=== PATIENT | male | born 1970 | race Native Hawaiian/Other Pacific Islander ===

== ENCOUNTER 2018-02-05 10:56 | Emergency (ER) | payer OTHER ==
[2018-02-05 11:29] VITALS: BP 122/80; PULSE 82; RESP 20; TEMP 98.3; O2SAT 98
--- NOTE | 2018-02-05 12:06 | C.PDOC ---
History Of Present Illness 47 year old male with a history of angina/ischemia presents to the emergency department requesting a refill for his medications. Patient is currently taking Coreg, Simvastatin, Losartan, and Aspirin. pt last took coreg and losartan 1 month ago. pt has been getting his medications from the [facility], but they have run out and the patient has not established any medical care in [place]. pt denies any cp, sob or any other complaints. Time Seen by Provider: 02/05/18 11:34 Chief Complaint (Nursing): Med Refill History/Exam Limitations: no limitations Past Medical History Reviewed: Historical Data, Nursing Documentation, Vital Signs Vital Signs: Last Vital Signs Temp 98.3 F 02/05/18 11:28 Pulse 82 02/05/18 11:28 Resp 20 02/05/18 11:28 BP 122/80 02/05/18 11:28 Pulse Ox 98 02/05/18 22:28 - Medical History PMH: HTN, Hypercholesterolemia Surgical History: No Surg Hx Family History: States: No Known Family Hx - Social History Hx Alcohol Use: Yes (Ex drinker) Hx Substance Use: No - Immunization History Hx Tetanus Toxoid Vaccination: No Hx Influenza Vaccination: No Hx Pneumococcal Vaccination: No Review Of Systems Cardiovascular: Negative for: Chest Pain, Palpitations, Light Headedness Respiratory: Negative for: Cough, Shortness of Breath Musculoskeletal: Negative for: Leg Pain Neurological: Negative for: Weakness, Numbness Physical Exam - Physical Exam Appears: Non-toxic, No Acute Distress Skin: Normal Color, Warm Head: Atraumatic, Normacephalic Chest: Symmetrical, No Tenderness Cardiovascular: Rhythm Regular, No Murmur Respiratory: No Decreased Breath Sounds, No Rales, No Rhonchi, No Wheezing Gastrointestinal/Abdominal: Bowel Sounds (good), Soft, No Tenderness Extremity: Normal ROM, No Pedal Edema, No Calf Tenderness Neurological/Psych: Oriented x3, Normal Speech, Normal Cognition ED Course And Treatment O2 Sat by Pulse Oximetry: 98 (RA) Pulse Ox Interpretation: Normal Medical Decision Making Medical Decision Making: pt with hx cad, ran out of medication coreg and losartan 1 month ago, asymptomatic, for refill. will give one month refill and pt strongly advised to make clinic appt elijah for further eval and medications. pt has at least one month of simvastatin and can buy asa otc. Disposition Counseled Patient/Family Regarding: Diagnosis, Need For Followup, Rx Given - Disposition Referrals: [facility] [Outside] Disposition: HOME/ ROUTINE Disposition Time: 12:57 Condition: GOOD Additional Instructions: Please take medications as prescribed. Please make clinic follow up appointment as soon as possible. 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 - Scribe Statement The provider has reviewed the documentation as recorded by the Scribe (Tio Dailey) All medical record entries made by the Scribe were at my direction and personally dictated by me. I have reviewed the chart and agree that the record accurately reflects my personal performance of the history, physical exam, medical decision making, and the department course for this patient. I have also personally directed, reviewed, and agree with the discharge instructions and disposition.
== END 2018-02-05 13:13 | disposition home or self-care (01) ==
LOC: C.ER 10:56
DX: Z76.0 Encounter for issue of repeat prescription (principal); I10 Essential (primary) hypertension; E78.00 Pure hypercholesterolemia, unspecified

== ENCOUNTER 2018-02-17 09:09 | Emergency (ER) | payer SELFPAY ==
[2018-02-17 09:16] VITALS: BP 120/76; PULSE 78; RESP 16; TEMP 98.8; O2SAT 98
--- NOTE | 2018-02-17 09:32 | C.PDOC ---
History Of Present Illness 47 year old male presents to the ED for evaluation of right-sided throat pain which began 2 days ago. Patient states his throat pain radiates up to his ear and rates it a 10/10 in severity. Patient also reports chills. He notes history of tonsilitis in the past. Patient denies fever, cough, runny nose, nausea, vomiting. Time Seen by Provider: 02/17/18 09:25 Chief Complaint (Nursing): ENT Problem History Per: Patient History/Exam Limitations: None Onset/Duration Of Symptoms: Days (2) Current Symptoms Are (Timing): Still Present Pain Scale Rating Of: 10 Past Medical History Reviewed: Historical Data, Nursing Documentation, Vital Signs Vital Signs: Last Vital Signs Temp 98.8 F 02/17/18 09:14 Pulse 78 02/17/18 09:14 Resp 16 02/17/18 09:14 BP 120/76 02/17/18 09:14 Pulse Ox 98 02/17/18 10:56 - Medical History PMH: HTN, Hypercholesterolemia Surgical History: No Surg Hx Family History: States: Unknown Family Hx - Social History Hx Alcohol Use: Yes (Ex drinker) Hx Substance Use: No - Immunization History Hx Tetanus Toxoid Vaccination: No Hx Influenza Vaccination: No Hx Pneumococcal Vaccination: No Review Of Systems Constitutional: Positive for: Chills. Negative for: Fever ENT: Positive for: Ear Pain, Throat Pain (right-sided ). Negative for: Nose Discharge Respiratory: Negative for: Cough Gastrointestinal: Negative for: Nausea, Vomiting Physical Exam - Physical Exam Appears: Non-toxic, No Acute Distress Skin: Normal Color, Warm, Dry Head: Atraumatic, Normacephalic Eye(s): bilateral: Normal Inspection Ear(s): Bilateral: Normal Nose: Normal, No Discharge Oral Mucosa: Moist Throat: Other (right-sided tonsillar enlargement, edema, and erythema. no fluctuance or exudates noted ) Neck: Normal ROM, Supple Chest: Symmetrical, No Deformity, No Tenderness Cardiovascular: Rhythm Regular, No Murmur Respiratory: Normal Breath Sounds, No Rales, No Rhonchi, No Wheezing Extremity: Normal ROM, Capillary Refill (less than 2 seconds ) Neurological/Psych: Oriented x3, Normal Speech, Normal Cognition ED Course And Treatment O2 Sat by Pulse Oximetry: 98 (on RA) Pulse Ox Interpretation: Normal Medical Decision Making Medical Decision Making: Progress: Motrin PO and Tylenol PO administered. On re-examination, patient is resting comfortably, remains afebrile, is showing no signs of distress and reports an improvement in his symptoms. Patient is stable for discharge with antibiotics. He is advised to follow up with ENT within 1-2 days for further evaluation and/or return to the ED if symptoms persist or worsen. Disposition Counseled Patient/Family Regarding: Diagnosis, Need For Followup, Rx Given - Disposition Referrals: Kulwinder Alonso MD [Staff Provider] - Disposition: HOME/ ROUTINE Disposition Time: 09:30 Condition: STABLE Prescriptions: Penicillin VK [Penicillin VK Tab] 2 tab PO BID #28 tab Forms: [employer] (Guyanese) - POA Present On Arrival: None - Clinical Impression Clinical Impression: Tonsillitis - Scribe Statement The provider has reviewed the documentation as recorded by the Scribe (Damari Hartley) Provider Attestation: All medical record entries made by the Scribe were at my direction and personally dictated by me. I have reviewed the chart and agree that the record accurately reflects my personal performance of the history, physical exam, medical decision making, and the department course for this patient. I have also personally directed, reviewed, and agree with the discharge instructions and disposition.
== END 2018-02-17 09:38 | disposition home or self-care (01) ==
LOC: C.ER 09:09
DX: J03.90 Acute tonsillitis, unspecified (principal)

== ENCOUNTER 2018-02-19 07:38 | Emergency (ER) | payer OTHER ==
[2018-02-19 07:45] VITALS: BMI 23.0
[2018-02-19] MEDS ORDERED: Sodium Chloride 0.9% 1,000 ML IV ONE (08:13)
[2018-02-19] MEDS ORDERED: Acetaminophen 160 mg/5 ml UD PO ONE (08:16)
--- NOTE | 2018-02-19 08:16 | C.PDOC ---
History Of Present Illness 47 y/o male presents to ED with c/o right sided throat pain and difficulty swallowing for 2 days. Patient was seen at ED for same symptoms yesterday and given Amoxicillin, states he had x1 episode of vomiting yesterday. Patient states he "keeps spitting up" and denies fever, chills, cough, sob or any other complaints at this time. Time Seen by Provider: 02/19/18 07:54 Chief Complaint (Nursing): GI Problem History Per: Patient History/Exam Limitations: None Onset/Duration Of Symptoms: Days Current Symptoms Are (Timing): Still Present Past Medical History Reviewed: Historical Data, Nursing Documentation, Vital Signs Vital Signs: Last Vital Signs Temp 97.8 F 02/19/18 13:08 Pulse 80 02/19/18 13:08 Resp 18 02/19/18 13:08 BP 116/76 02/19/18 13:08 Pulse Ox 97 02/19/18 13:08 - Medical History PMH: HTN, Hypercholesterolemia Surgical History: No Surg Hx Family History: States: No Known Family Hx - Social History Hx Alcohol Use: Yes (Ex drinker) Hx Substance Use: No - Immunization History Hx Tetanus Toxoid Vaccination: No Hx Influenza Vaccination: No Hx Pneumococcal Vaccination: No Review Of Systems Constitutional: Negative for: Fever, Chills ENT: Positive for: Throat Pain. Negative for: Ear Pain Respiratory: Negative for: Cough, Shortness of Breath Skin: Negative for: Rash Physical Exam - Physical Exam Appears: Non-toxic, No Acute Distress Skin: Warm, Dry, No Rash Head: Atraumatic, Normacephalic Eye(s): bilateral: Normal Inspection Ear(s): Bilateral: Normal Oral Mucosa: Moist Throat: Erythema, No Exudate, Other (Enlarged right tonsil touches uvula) Lymphatic: Adenopathy (Right submandibular) Cardiovascular: Rhythm Regular Respiratory: Normal Breath Sounds, No Rales, No Rhonchi, No Wheezing Neurological/Psych: Oriented x3, Normal Speech, Normal Cognition ED Course And Treatment - Laboratory Results Result Diagrams: 02/19/18 08:36 02/19/18 08:36 O2 Sat by Pulse Oximetry: 99 (RA) Pulse Ox Interpretation: Normal Medical Decision Making Medical Decision Making: pt with unilateral tonsillar swelling, on amoxiciilin. pt has shellfish a;llergy ; sts his throat swells and itches with shellfish; do not want to give IV contrast with this hx. 1103: Discussed CT results with Dr. Alonso and believes patient has WAGE CONCILIATOR and will evaluate patient at bedside in [address] Alonso did bedside ferry captain drainage. pt to be discharged on bactrim with ent f/u in one week Disposition Discussed With Dr.: Kulwinder Alonso Doctor Will See Patient In The: Hospital Counseled Patient/Family Regarding: Studies Performed, Diagnosis, Need For Followup, Rx Given - Disposition Referrals: Kulwinder Alonso MD [Staff Provider] - Disposition: HOME/ ROUTINE Disposition Time: 12:54 Condition: IMPROVED Additional Instructions: Please stop taking PenVK (antibiotics prescribed the other day) and start on Bactrim as prescribed today for the full 10 days. Tylenol or Motrin for pain. Please follow up with Dr Alonso in one week- call for an appointment. Return to ER for any worsening symptoms. 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 - Scribe Statement The provider has reviewed the documentation as recorded by the Nir Irizarry All medical record entries made by the Amyibsujey were at my direction and personally dictated by me. I have reviewed the chart and agree that the record accurately reflects my personal performance of the history, physical exam, medical decision making, and the department course for this patient. I have also personally directed, reviewed, and agree with the discharge instructions and disposition.
[2018-02-19] MEDS ORDERED: Acetaminophen 650mg/20.3ml solution UD ONE (08:38)
[2018-02-19 08:40] LABS: BASO # 0.1 K/uL (0.0-0.2); BASO % 0.5 % (0.0-2.0); EOS % 0.2 % (0.0-4.0); LYMPH # 1.8 K/uL (1.0-4.3); LYMPH % 9.7 % (20.0-40.0); MEAN CELL VOLUME 88.7 fL (80.0-94.0); MEAN CORPUSCULAR HEMOGLOBIN 30.2 pg (27.0-31.0); MEAN PLATELET VOLUME 7.5 fL (7.2-11.7); MONO # 1.8 K/uL (0.0-0.8); MONO % 9.8 % (0.0-10.0); NEUT # 14.5 K/uL (1.8-7.0); NEUT % 79.8 % (50.0-75.0); PLATELET COUNT 239 K/uL (130-400); RBC 4.65 Mil/uL (4.40-5.90); RED CELL DISTRIBUTION WIDTH 12.8 % (11.5-14.5); WHITE BLOOD COUNT 18.1 K/uL (4.8-10.8)
[2018-02-19 08:51] LABS: ALT/SGPT 114 U/L (21-72); AST/SGOT 80 U/L (17-59); BLOOD UREA NITROGEN 19 mg/dL (9-20); GFR AFRICAN-AMERICAN > 60; GFR NON-AFRICAN AMERICAN > 60
[2018-02-19 09:21] LABS: BANDS 1 % (0-2); LYMPHOCYTE 10 % (20-40); NEUTROPHIL 79 % (50-75); PLATELET ESTIMATE NORMAL (NORMAL); TOTAL CELLS COUNTED 100
[2018-02-19 09:22] LABS: MONOCYTE 10 % (0-10)
[2018-02-19] MEDS ORDERED: Dexamethasone 4 mg/1 ml ONE (09:34)
--- NOTE | 2018-02-19 10:50 | CT ---
PROCEDURE: CT NECK WITHOUT CONTRAST HISTORY: Right tonsillar swelling. eval for pts please COMPARISON: None TECHNIQUE: CT of the neck without intravenous contrast. Coronal and sagittal reformats generated. Examination is limited in the absence of intravenous contrast. Radiation dose: DLP 420.17 MGy-cm This CT exam was performed using one or more of the following dose reduction techniques: Automated exposure control, adjustment of the mA and/or kV according to patient size, and/or use of iterative reconstruction technique. FINDINGS: NASOPHARYNX: Mild mass effect on the right posterior nasopharynx. No evidence of airway narrowing. SUPRAHYOID NECK: There is an apparent 2.9 x 3.2 x 3.1 cm Iso to hypodense mass in the right palatine tonsil with resultant mass effect on the right pharyngeal wall and effacement of the right parapharyngeal fat. Abnormal soft tissue is also seen extending inferiorly into the right supraglottic and paraglottic space with effacement of the right piriform sinus. There is also abnormal soft tissue in the right hypopharynx. The oral cavity and retropharyngeal space are grossly within normal limits. INFRAHYOID NECK: The larynx, hypopharynx, and supraglottic space are grossly within normal limits. Vocal cords intact. GLANDS: Parotid and submandibular glands unremarkable. Normal size thyroid gland, without nodule. LYMPH NODES: There are enlarged right level 2 3 and level 4 lymph nodes. CERVICAL SPINE: No fracture or focal lesion. OTHER FINDINGS: Incompletely imaged is a 5 mm nodule in the right upper lobe. IMPRESSION: 1. Please noted this examination is severely limited for evaluation of mass an abscess in the absence of intravenous contrast. Allowing for this, masslike soft tissue in the right tonsil with mass effect on the right pharyngeal wall and extending inferiorly into the supraglottic and paraglottic spaces as well as hypopharynx. The differential considerations include infectious and neoplastic etiology. 2. Reactive/metastasis right level 2, 3 and 4 lymphadenopathy.
[2018-02-19] MEDS ORDERED: Lidocaine 1%/Epinephrine 1:100000 30 ml vial INJ ONE (11:06)
[2018-02-19 13:09] VITALS: BP 116/76; PULSE 80; RESP 18; TEMP 97.8
--- NOTE | 2018-02-19 23:14 | OP ---
PROCEDURE DATE: 02/19/2018 PREOPERATIVE DIAGNOSIS: Right peritonsillar abscess. POSTOPERATIVE DIAGNOSIS: Right peritonsillar abscess. PROCEDURE: Incision and drainage of right peritonsillar abscess. SIGNIFICANT FINDINGS: Right peritonsillar abscess. DESCRIPTION OF PROCEDURE: The patient was placed in a seated position. The right peritonsillar area was injected with lidocaine with epinephrine to achieve anesthesia. A #11 blade was used to make an incision in in the right peritonsillar area on the soft palate. Blunt dissection was done. Pus was noted coming out. Loculations were broken with the clamp. Bleeding was controlled with time. The patient tolerated the procedure well. Kulwinder Alonso MD
[2018-02-22 13:01] VITALS: O2SAT 99
== END 2018-02-19 13:09 | disposition home or self-care (01) ==
LOC: C.ER 07:38
DX: J36 Peritonsillar abscess (principal); I10 Essential (primary) hypertension; E78.00 Pure hypercholesterolemia, unspecified
CPT/HCPCS: 42700; 70490; 80053; 85025; 87070; 87430; 96374; 99285; J1100; J7030